=== PATIENT | female | born 1985 | race Caucasian/White ===

== ENCOUNTER 2023-06-20 08:17 | Observation (INO) | payer OTHER ==
[~2023-06-20] VITALS: Ht 167.6 cm; Wt 116.7 kg
[2023-06-20 08:27] VITALS: BP 144/85; PULSE 76; RESP 16; TEMP 98.5; O2SAT 99
[2023-06-20 09:00] VITALS: O2SAT 97
[2023-06-20 09:19] LABS: BASOPHILS % (AUTO) 0.3 % (0.0-2.0); EOSINOPHILS % (AUTO) 0.5 % (0.0-4.0); HEMATOCRIT 31.4 % (36-48); HEMOGLOBIN 10.7 g/dL (12.0-16.0); LYMPHOCYTES # (AUTO) 1.3 K/uL (2.5-16.5); LYMPHOCYTES % (AUTO) 12.1 % (20.5-51.1); MEAN CORPUSCULAR HEMOGLOBIN 27 pg (27-31); MEAN CORPUSCULAR HGB CONC 34 g/dL (33-37); MEAN CORPUSCULAR VOLUME 80.6 fL (80-94); MONOCYTES # (AUTO) 0.6 K/uL (0.8-1.0); MONOCYTES % (AUTO) 5.4 % (1.7-9.3); NEUTROPHILS # (AUTO) 8.5 K/uL (1.8-7.7); NEUTROPHILS % (AUTO) 81.7 % (42.2-75.2); PLATELET COUNT (AUTO) 339 K/uL (140-450); RED CELL DISTRIBUTION WIDTH 14.9 % (11.6-13.7); WHITE BLOOD COUNT (AUTO) 10.4 K/uL (4.8-10.8)
[2023-06-20 09:30] LABS: APPEARANCE,URINE CLEAR (CLEAR); BILIRUBIN,URINE NEGATIVE (NEGATIVE); BLOOD, URINE 1+ (NEGATIVE); COLOR,URINE YELLOW (YELLOW); LEUKOCYTE ESTERASE ,URINE NEGATIVE (NEGATIVE); NITRITE, URINE NEGATIVE (NEGATIVE); PROTEIN,URINE NEGATIVE (NEGATIVE); UGLUCOSE NEGATIVE (NEGATIVE); UROBILINOGEN,URINE 0.2 EU/dL (0.2 - 1)
[2023-06-20 09:39] LABS: CALCIUM 8.9 mg/dL (8.5-10.1); CARBON DIOXIDE 38.7 mmol/L (21-32); CHLORIDE 103 mmol/L (98-107); CREATININE 0.6 mg/dL (0.6-1.3); GFR ARICAN-AMERICAN 144 mL/min (>90); GFR NON ARICAN-AMERICAN 119 mL/min (>90); GLUCOSE 175 mg/dL (74-106); POTASSIUM 3.9 mmol/L (3.5-5.1); SODIUM SERUM 136 mmol/L (136-145)
[2023-06-20] MEDS: NACL 0.9% 1,000 ML IV SCH ×2 (09:40→12:59)
[2023-06-20 09:49] LABS: UREA NITROGEN, BLOOD 5 mg/dL (7-18)
[2023-06-20 09:54] LABS: ALBUMIN 2.2 g/dL (3.4-5.0); BILIRUBIN,DIRECT 0.1 mg/dL (0.0-0.3); THYROID STIMULATING HORMONE 1.45 uIU/mL (0.34-3.74); TOTAL BILIRUBIN 0.2 mg/dL (0.0-1.0); TOTAL PROTEIN, SERUM 7.4 g/dL (6.4-8.2)
[2023-06-20 11:44] VITALS: BP 114/56; PULSE 77; RESP 18; TEMP 97.8
[2023-06-20] MEDS ORDERED: LACTATED RINGERS 1,000 ML IV ONE (12:00)
[2023-06-20] MEDS ORDERED: INSULIN LISPRO SLIDING SCALE 100 UNITS/ML VIAL SUBQ PRN (12:25)
[2023-06-20] MEDS: LACTATED RINGERS 1,000 ML IV ONE (12:43)
[2023-06-20] MEDS: ONDANSETRON 4 MG/2 ML VIAL IVP SCH (12:44)
[2023-06-20] MEDS ORDERED: LACTATED RINGERS 1,000 ML IV SCH (13:00)
[2023-06-20] MEDS: LACTATED RINGERS 1,000 ML IV SCH (14:06)
== END 2023-06-20 18:15 | disposition home or self-care (01) ==
LOC: MED 08:17 → MLD 11:58
PROVIDERS: ADMIT Obstetrics & Gynecology; ATTEND Obstetrics & Gynecology
DX: O24.419 Gestational diabetes mellitus in pregnancy, unspecified control (principal); Z20.822 Contact with and (suspected) exposure to COVID-19; O99.282 Endocrine, nutritional and metabolic diseases complicating pregnancy, second trimester; E03.9 Hypothyroidism, unspecified; O99.212 Obesity complicating pregnancy, second trimester; E66.9 Obesity, unspecified; O09.522 Supervision of elderly multigravida, second trimester; O21.2 Late vomiting of pregnancy; Z3A.27 27 weeks gestation of pregnancy; Z88.0 Allergy status to penicillin; Z88.2 Allergy status to sulfonamides; Z79.899 Other long term (current) drug therapy
CPT/HCPCS: 36415; 80048; 80076; 81003; 82948; 83036; 84443; 85025; 87426; 93005; 96361; 96365; 96375; 99284; G0378; J0696; J1815; J2405; J7060

== ENCOUNTER 2023-08-20 18:25 | Observation (INO) | payer OTHER ==
[~2023-08-20] VITALS: Ht 167.6 cm; Wt 119.7 kg
[2023-08-20] MEDS ORDERED: CALCIUM (18:51)
[2023-08-20] MEDS ORDERED: METF-1139 PO (18:51)
[2023-08-20] MEDS ORDERED: PNV1TABL38 PO (18:51)
[2023-08-20] MEDS ORDERED: LIOT5TAB4 PO (18:51)
[2023-08-20] MEDS ORDERED: URSO250T2 PO (18:51)
[2023-08-20] MEDS ORDERED: SYN.1 PO (18:51)
[2023-08-20] MEDS ORDERED: FERR-212 PO (18:51)
[2023-08-20 18:58] VITALS: BP 120/59; PULSE 74; TEMP 98.1
== END 2023-08-20 23:15 | disposition home or self-care (01) ==
LOC: MLD 18:25
PROVIDERS: ADMIT Obstetrics & Gynecology; ATTEND Obstetrics & Gynecology
DX: O26.893 Other specified pregnancy related conditions, third trimester (principal); R10.9 Unspecified abdominal pain; Z3A.36 36 weeks gestation of pregnancy
CPT/HCPCS: 76805; 81000; G0378; G0379; Q0092